=== PATIENT | female | born 1980 | race Caucasian/White ===

== ENCOUNTER → 2016-03-02 | Outpatient (CLI) | payer OTHER ==
[~2016-03-02] MED LIST: MOMLX PO; POLY335019 PO; SERT50TA PO
--- NOTE | 2016-03-03 10:09 | DIAGNOSTIC IMAGING REPORT ---
LEFT KNEE 4 OR MORE CLINICAL HISTORY: LEFT KNEE PAIN REMOTE TRAUMA COMPARISON: None. DISCUSSION: No fractures or dislocations are visualized. There are no areas of periostitis. No radiopaque loose bodies are visualized. IMPRESSION: Unremarkable conventional radiographic evaluation the left knee. Electronically signed by: Tono Mccain M.D. 03/03/2016 10:07 AM
== END | disposition home or self-care (01) ==
LOC: C.RDSM 08:00
PROVIDERS: ATTEND Family Medicine
DX: M25.562 Pain in left knee (principal)

== ENCOUNTER → 2016-04-26 | Outpatient (CLI) | payer OTHER ==
[2016-04-26 17:37] LABS: BASO % 0.3 %; BASO ABS # 0.03 K/uL (0-0.2); COMPLETE YES; EOS % 1.6 %; HEMATOCRIT 38.2 % (37-47); IG% 0.2 %; LYMPH % 22.1 %; LYMPH ABS # 2.36 K/uL (1.2-3.4); MEAN CORPUSCULAR HEMOGLOBIN 26.3 pg (25-34); MEAN CORPUSCULAR HGB CONC 31.7 g/dl (32-36); MEAN PLATELET VOLUME 10.7 fL (7.4-10.4); MONO % 9.1 %; NEUT % 66.7 %; PLATELET COUNT 322 K/uL (130-400); WHITE BLOOD COUNT 10.67 K/uL (4.8-10.8)
[2016-04-26 17:40] LABS: FERRITIN 11.5 ng/ml (8.0-388.0)
== END | disposition home or self-care (01) ==
LOC: C.LABBFT 11:43
PROVIDERS: ATTEND Nurse Practitioner
DX: D50.9 Iron deficiency anemia, unspecified (principal)

== ENCOUNTER 2016-07-22 22:50 | Emergency (ER) | payer OTHER ==
[~2016-07-22] VITALS: Ht 165.1 cm; Wt 67.5 kg
[~2016-07-22 22:50] MED LIST changes: -MOMLX PO; -POLY335019 PO
[2016-07-22 22:56] VITALS: BP 123/65; TEMP 36.8; Ht 165.1 cm; Wt 67.5 kg
[2016-07-22] MEDS ORDERED: KETOROLAC TROMETHAMINE 60 MG/2 ML VIAL IM STA (23:11)
[2016-07-22] MEDS ORDERED: POLY335019 PO (23:52)
--- NOTE | 2016-07-23 00:25 | EMERGENCY ROOM VISIT NOTE ---
History First contact with patient: 23:00 Chief Complaint: WRIST PAIN Stated Complaint: R WRIST PAIN UP TO ELBOW History of Present Illness The patient is a 35 year old female who presents to the Emergency Room with complaints of right forearm pain and discomfort for the past several hours. She 's had DVTs before. Patient does smoke. No injury to the area. She describes the pain as aching, ranging in severity 7 out of 10. Movement makes it worse and nothing makes it better. Patient denies chest pain, dyspnea, fever, chills , numbness, tingling, injury to the area. No Discoloration. No wrist or elbow pain. Review of Systems See HPI for pertinent positives & negatives. A total of 10 systems reviewed and were otherwise negative. Past Medical/Surgical History Medical Problems: (1) Anemia (2) Anxiety (3) Colonoscopy (4) Depression (5) ESOPHAGEAL REFLUX (6) Gallstones (7) Irritable bowel syndrome with constipation (8) Leukocytosis Family History Cancer Diabetes mellitus Gallbladder disease Heart disease Hypertension Kidney disease Kidney stones Lung disease Seizures Social History Smoking Status: Never Smoker Alcohol Use: none Drug Use: none Marital Status: Housing Status: lives with family Occupation Status: employed Current/Historical Medications Scheduled Sertraline (Zoloft), 1 TAB PO DAILY Scheduled PRN Polyethylene Glycol 3350 (Miralax), 17 GM PO DAILY PRN for Constipation Allergies Coded Allergies: Vancomycin (Verified Allergy, Intermediate, REDDENED RASH-"FELT LIKE SKIN WAS ON FIRE"., 07/22/16) Physical Exam Vital Signs Date Time Temp Pulse Resp B/P Pulse Ox O2 Delivery O2 Flow Rate FiO2 07/22/16 22:56 36.8 80 20 123/65 99 Room Air Physical Exam VITALS: Vitals are noted on the nurse's note and reviewed by myself. Vital signs stable. GENERAL: Pleasant female with tobacco odor, in no acute distress, nondiaphoretic , well-developed well-nourished. SKIN: Capillary reflex less than 2 seconds. HEENT: Normocephalic. PERRLA. EOMI. Nares patent. Mucous membranes moist. Neck is supple without nuchal rigidity. HEART: Regular rate and rhythm without murmurs gallops or rubs. LUNGS: Clear to auscultation bilaterally without wheezes, rales or rhonchi. No retractions or accessory muscle use. ABDOMEN: Positive bowel sounds x 4. Normal tympanic percussion. Soft, nontender, without masses or organomegaly. Gongora sign negative. No guarding or rebound tenderness. MUSCULOSKELETAL: No gross musculoskeletal defects. Right forearm diffusely tender to palpation, right shoulder, right elbow, right wrist and right hand nontender to palpation with full range of motion. Radial pulses +2 equal present bilaterally. No signs of synovitis. NEURO: Patient was alert and oriented to person place and time. Normal sensation to light and sharp touch. No focal neurological deficits. Medical Decision & Procedures Medications Administered Medications (Trade) Dose Ordered Sig/Will Route Start Time Stop Time Status Last Admin Dose Admin Ketorolac Tromethamine (Toradol Inj) 60 mg NOW STAT IM 07/22/16 23:11 07/22/16 23:13 DC 07/22/16 23:17 60 MG ED Course Prior records reviewed and summarized above. Triage Nursing notes reviewed. Additional history obtained from the family. The patient's history was concerning for pain in the arm. Differential diagnosis: Etiologies such as DVT, musculoskeletal, infection, joint effusion, trauma, lymphedema, idiopathic, carpal tunnel, neuropathy, fracture, as well as others were entertained.. Physical examination: The physical examination revealed no signs of infection. Neurovascularly intact. ER treatment provided: Toradol On reassessment the patient felt better. Diagnostics interpreted by me: Imaging studies: US VENOUS RIGHT UPPER EXTREMITY: No DVT demonstrated. Radiologist: Zuri Salmeron M.D. X-ray of the forearm with no signs of fracture or dislocation per my interpretation This appears to be consistent with forearm pain with unclear etiology. This could be a neuropathy. She is advised to take Motrin for the pain and follow- up orthopedics in a few days or here in the ER sooner for severe pain, numbness , tingling, worsening signs or symptoms or as needed. patient was neurovascularly neurologic intact. She is well-appearing. By the evaluation outlined above emergent etiologies such as DVT, septic joint, trauma, infection , as well as others were deemed relatively unlikely. The pt informed about the findings as listed above. All questions were answered and pleased with the treatment. Return instructions were outlined and the patient was discharged in stable condition. Referral: The patient was referred back to their primary care physician or orthopedics for follow-up in 2 to 3 days for a recheck of the current condition. Medical Decision As above Impression Primary Impression: Pain in right upper arm Departure Information Dispostion Home / Self-Care Condition GOOD Referrals Nadeen Riley, C.R.N.P. (PCP) Patient Instructions My [facility] Additional Instructions Ibuprofen(Motrin, Advil) may be used for fever or pain. Use 600mg every six hours as needed. Take with food. Avoid using more than 2400mg in a 24 hour period. Do not use 2400mg per day for more than three consecutive days without physician direction. Prolonged inappropriate use can lead to stomach upset or ulcers. This medication can be taken if you need to drive, work, or perform activities which may be dangerous when taking narcotic pain medication. (AND/OR) Acetaminophen(Tylenol) may be used for fever or pain. Use 1000mg every six hours as needed. Avoid using more than 3000mg in a 24 hour period. This medication can be taken if you need to drive, work, or perform activities which may be dangerous when taking narcotic pain medication. Rest and elevate your injury. Continue current medications. Return to the ER immediately for any numbness, tingling, severe pain, extreme swelling in the extremity or as needed. Call Orthopedics in 3-5 days to arrange follow up for your arm pain.
[2016-07-23 00:33] VITALS: PULSE 76; O2SAT 95
--- NOTE | 2016-07-23 07:16 | DIAGNOSTIC IMAGING REPORT ---
RIGHT UPPER EXTREMITY VENOUS DOPPLER HISTORY: Right arm pain. COMPARISON STUDY: None. FINDINGS: The right internal jugular vein is patent. There is normal flow within the right subclavian vein. There is normal flow and compressibility within the right axillary, basilic, brachial, radial, ulnar, and visualized cephalic veins. IMPRESSION: No DVT within the right upper extremity. Electronically signed by: Darvin Villanueva M.D. 07/23/2016 7:14 AM Dictated Date/Time: 07/23/2016 7:14 AM
--- NOTE | 2016-07-23 08:46 | DIAGNOSTIC IMAGING REPORT ---
RIGHT FOREARM 2 VIEWS CLINICAL HISTORY: Right arm pain. FINDINGS: AP and lateral views of the right forearm are obtained. No prior studies are available for comparison at the time of dictation. The skeletal structures are well mineralized. No fracture is seen. The wrist and elbow joints are grossly maintained. The overlying soft tissues are within normal limits. IMPRESSION: Unremarkable radiographic assessment of the right forearm. Electronically signed by: Vimal Murray M.D. 07/23/2016 8:44 AM Dictated Date/Time: 07/23/2016 8:44 AM
== END 2016-07-23 00:34 | disposition home or self-care (01) ==
LOC: C.EDB 22:51 → C.EDC 07-23 00:34
DX: M79.631 Pain in right forearm (principal); F41.9 Anxiety disorder, unspecified; F32.9 Major depressive disorder, single episode, unspecified; K21.9 Gastro-esophageal reflux disease without esophagitis; K58.9 Irritable bowel syndrome, unspecified; Z79.899 Other long term (current) drug therapy; Z86.718 Personal history of other venous thrombosis and embolism; Z87.19 Personal history of other diseases of the digestive system; Z82.0 Family history of epilepsy and other diseases of the nervous system; Z82.49 Family history of ischemic heart disease and other diseases of the circulatory system; Z83.3 Family history of diabetes mellitus; Z83.6 Family history of other diseases of the respiratory system; Z83.79 Family history of other diseases of the digestive system; Z84.1 Family history of disorders of kidney and ureter

== ENCOUNTER 2016-09-20 15:32 | Emergency (ER) | payer OTHER ==
[~2016-09-20] VITALS: Ht 152.4 cm; Wt 69.9 kg
[~2016-09-20 15:32] MED LIST changes: +POLY335019 PO
[2016-09-20 15:46] VITALS: TEMP 37.5; Ht 152.4 cm; Wt 69.9 kg
[2016-09-20 15:52] VITALS: O2SAT 100
[2016-09-20] MEDS ORDERED: SODIUM CHLORIDE 0.9% 1000ML 1,000 ML IV STA (16:21)
[2016-09-20] MEDS ORDERED: MOMLX PO (16:36)
[2016-09-20 16:42] LABS: BASO % 0.2 %; BASO ABS # 0.02 K/uL (0-0.2); COMPLETE YES; EOS % 0.6 %; HEMATOCRIT 36.1 % (37-47); IG% 0.3 %; LYMPH % 15.7 %; LYMPH ABS # 1.88 K/uL (1.2-3.4); MEAN CELL VOLUME 83.6 fL (80-100); MEAN CORPUSCULAR HEMOGLOBIN 27.3 pg (25-34); MEAN CORPUSCULAR HGB CONC 32.7 g/dl (32-36); MEAN PLATELET VOLUME 10.2 fL (7.4-10.4); MONO % 8.4 %; NEUT % 74.8 %; PLATELET COUNT 359 K/uL (130-400); RED BLOOD COUNT 4.32 M/uL (4.2-5.4); WHITE BLOOD COUNT 11.96 K/uL (4.8-10.8)
--- NOTE | 2016-09-20 16:42 | DIAGNOSTIC IMAGING REPORT ---
SINGLE VIEW CHEST CLINICAL HISTORY: Tachycardia. FINDINGS: An AP, portable, upright chest radiograph is compared to study dated 12/18/2015. The cardiomediastinal silhouette is unremarkable. The lungs and pleural spaces are clear. No pneumothorax is seen. The bony thorax is grossly intact. IMPRESSION: No active disease in the chest. Electronically signed by: Vimal Murray M.D. 09/20/2016 4:40 PM Dictated Date/Time: 09/20/2016 4:40 PM
[2016-09-20 16:48] LABS: PREG INTERNAL NEGATIVE QC NEG CLEAR BACKGROUND; PREG INTERNAL POSITIVE QC POS CONTROL LINE
[2016-09-20 16:50] LABS: BLOOD UREA NITROGEN 9 mg/dl (7-18); BUN/CREATININE RATIO 7.8 (10-20); CALCIUM 8.3 mg/dl (8.5-10.1); CARBON DIOXIDE 28 mmol/L (21-32); CHLORIDE 105 mmol/L (98-107); GLUCOSE 99 mg/dl (70-99); MAGNESIUM 2.5 mg/dl (1.8-2.4); POTASSIUM 3.8 mmol/L (3.5-5.1); SODIUM 141 mmol/L (136-145)
[2016-09-20] MEDS ORDERED: OPTIRAY 320 IV PRN (17:30)
--- NOTE | 2016-09-20 18:12 | DIAGNOSTIC IMAGING REPORT ---
CT ANGIOGRAPHY OF THE CHEST, PULMONARY EMBOLUS PROTOCOL CLINICAL HISTORY: Elevated d-dimer, tachycardia and near syncope. COMPARISON STUDY: Chest radiograph December 26, 2015 and September 20, 2016. TECHNIQUE: Following IV administration of 73 mL of Optiray-320, helical axial images of the chest were obtained utilizing the pulmonary embolus protocol. Maximal intensity projections and sagittal and coronal reformats were viewed on an independent 3D workstation. IV contrast was administered without complication. A dose lowering technique was utilized adhering to the principles of ALARA. CT DOSE: 246.19 mGy.cm FINDINGS: No pulmonary emboli are identified. There is no evidence of thoracic aortic dissection. The size of the heart is normal. There is no pericardial effusion. Central airways are patent. No enlarged axillary, mediastinal or hilar lymph nodes are present. Lungs are clear. There is no pneumothorax or pleural effusion. The bony thorax and upper abdomen are unremarkable. IMPRESSION: 1. No pulmonary emboli identified. 2. No acute intrathoracic findings. Electronically signed by: Pete Reardon M.D. 09/20/2016 6:11 PM Dictated Date/Time: 09/20/2016 6:06 PM
--- NOTE | 2016-09-20 18:29 | EMERGENCY ROOM VISIT NOTE ---
History First contact with patient: 15:59 Chief Complaint: TACHYCARDIA Stated Complaint: TACHYCARDIA, NEAR SYNCOPE Nursing Triage Summary: Patient states she was outside unloading stuff from truck and started feeling lightheaded and dizzy. Patient states she then became nervous and and felt like her heart was racing. Patient states she has a hx of panic attacks for which she takes Zoloft for. No CP or SOB was experienced during this episode. History of Present Illness The patient is a 35 year old female who presents to the Emergency Room with complaints of dizziness and an episode of almost passing out. The patient states that she was outside unloading things from a truck when she began to feel lightheaded and dizzy. She states that she felt like she was going to pass out and felt her heart racing. She sat down and states that her hands became numb and tingling. She states that her symptoms have gradually improved and she feels much better at this time. She does have a history of anxiety and panic attacks. She does not take any medications as needed for the symptoms. She does admit to working outside in the hot weather and feels she may have been a little dehydrated. She denies any loss of consciousness. She denies chest pain, shortness of breath, headache, neck pain or recent illnesses. Review of Systems A complete 10 point review of systems was reviewed with the patient with pertinent positives and negatives as per history of present illness. All else were negative. Past Medical/Surgical History Medical Problems: (1) Anemia (2) Anxiety (3) Colonoscopy (4) Depression (5) ESOPHAGEAL REFLUX (6) Gallstones (7) Irritable bowel syndrome with constipation (8) Leukocytosis Family History Cancer Diabetes mellitus Gallbladder disease Heart disease Hypertension Kidney disease Kidney stones Lung disease Seizures Social History Smoking Status: Never Smoker Alcohol Use: none Drug Use: none Marital Status: Housing Status: lives with family Occupation Status: employed Current/Historical Medications Scheduled Magnesium Hydroxide (Milk of Magnesia), 30 ML PO WK Sertraline (Zoloft), 50 MG PO DAILY Physical Exam Vital Signs Date Time Temp Pulse Resp B/P (MAP) Pulse Ox O2 Delivery O2 Flow Rate FiO2 09/20/16 18:34 73 16 95/53 99 Room Air 09/20/16 17:45 84 18 97/56 99 Room Air 09/20/16 16:14 103 09/20/16 15:52 100 Room Air 09/20/16 15:46 37.5 125 33 136/66 100 Room Air 09/20/16 15:46 98 Room Air Physical Exam VITALS: Vitals are noted on the nurse's note and reviewed by myself. Vital signs stable. GENERAL: This is a 35-year-old female, in no acute distress, nondiaphoretic, well-developed well-nourished. SKIN: The skin was without rashes. EARS: External auditory canals clear, tympanic membranes pearly morrison without erythema or effusion bilaterally. EYES: Pupils equal round and reactive to light and accommodation. Conjunctivae without injection, sclerae without icterus. Extraocular movements intact. MOUTH: Mucous membranes moist. Tonsils are not enlarged. Pharynx without erythema or exudate. NECK: Supple without nuchal rigidity. No lymphadenopathy. HEART: Regular rate and rhythm without murmurs gallops or rubs. LUNGS: Clear to auscultation bilaterally without wheezes, rales or rhonchi. MUSCULOSKELETAL: Full range of motion throughout. Strength 5/5 throughout. NEURO: Patient was alert and oriented to person place and time. Normal sensation to light and sharp touch. Medical Decision & Procedures ER Provider Diagnostic Interpretation: SINGLE VIEW CHEST FINDINGS: An AP, portable, upright chest radiograph is compared to study dated 12/18/2015. The cardiomediastinal silhouette is unremarkable. The lungs and pleural spaces are clear. No pneumothorax is seen. The bony thorax is grossly intact. IMPRESSION: No active disease in the chest. CT ANGIOGRAPHY OF THE CHEST, PULMONARY EMBOLUS PROTOCOL FINDINGS: No pulmonary emboli are identified. There is no evidence of thoracic aortic dissection. The size of the heart is normal. There is no pericardial effusion. Central airways are patent. No enlarged axillary, mediastinal or hilar lymph nodes are present. Lungs are clear. There is no pneumothorax or pleural effusion. The bony thorax and upper abdomen are unremarkable. IMPRESSION: 1. No pulmonary emboli identified. 2. No acute intrathoracic findings. Laboratory Results 09/20/16 16:00 Red Blood Count 4.32, Mean Corpuscular Volume 83.6, Mean Corpuscular Hemoglobin 27.3, Mean Corpuscular Hemoglobin Concent 32.7, Mean Platelet Volume 10.2, Neutrophils (%) (Auto) 74.8, Lymphocytes (%) (Auto) 15.7, Monocytes (%) (Auto) 8.4, Eosinophils (%) (Auto) 0.6, Basophils (%) (Auto) 0.2, Neutrophils # (Auto) 8.96, Lymphocytes # (Auto) 1.88, Monocytes # (Auto) 1.00, Eosinophils # (Auto) 0.07, Basophils # (Auto) 0.02 09/20/16 16:00 Test 09/20/16 16:00 White Blood Count 11.96 K/uL (4.8-10.8) Red Blood Count 4.32 M/uL (4.2-5.4) Hemoglobin 11.8 g/dL (12.0-16.0) Hematocrit 36.1 % (37-47) Mean Corpuscular Volume 83.6 fL (80-100) Mean Corpuscular Hemoglobin 27.3 pg (25-34) Mean Corpuscular Hemoglobin Concent 32.7 g/dl (32-36) Platelet Count 359 K/uL (130-400) Mean Platelet Volume 10.2 fL (7.4-10.4) Neutrophils (%) (Auto) 74.8 % Lymphocytes (%) (Auto) 15.7 % Monocytes (%) (Auto) 8.4 % Eosinophils (%) (Auto) 0.6 % Basophils (%) (Auto) 0.2 % Neutrophils # (Auto) 8.96 K/uL (1.4-6.5) Lymphocytes # (Auto) 1.88 K/uL (1.2-3.4) Monocytes # (Auto) 1.00 K/uL (0.11-0.59) Eosinophils # (Auto) 0.07 K/uL (0-0.5) Basophils # (Auto) 0.02 K/uL (0-0.2) RDW Standard Deviation 42.5 fL (36.4-46.3) RDW Coefficient of Variation 13.8 % (11.5-14.5) Immature Granulocyte % (Auto) 0.3 % Immature Granulocyte # (Auto) 0.03 K/uL (0.00-0.02) D-Dimer 620 ug/L FEU (0-500) Anion Gap 8.0 mmol/L (3-11) Est Creatinine Clear Calc Drug Dose 57.6 ml/min Estimated GFR () 68.3 Estimated GFR (Non- 58.9 BUN/Creatinine Ratio 7.8 (10-20) Calcium Level 8.3 mg/dl (8.5-10.1) Magnesium Level 2.5 mg/dl (1.8-2.4) Troponin I < 0.015 ng/ml (0-0.045) Thyroid Stimulating Hormone (TSH) 1.520 uIu/ml (0.300-4.500) Human Chorionic Gonadotropin, Qual NEG (NEG) Medications Administered Medications (Trade) Dose Ordered Sig/Will Route Start Time Stop Time Status Last Admin Dose Admin Sodium Chloride 1,000 ml @ 999 mls/hr Q1H1M STAT IV 09/20/16 16:21 09/20/16 17:21 DC 09/20/16 16:21 999 MLS/HR ECG Rate (beats per minute): 108 Rhythm: sinus tachycardia Findings: no acute ischemic change, no ectopy Comparison ECG Date: increased ventricular rate ED Course The patient was evaluated as above. Labs were drawn and IV access was obtained. Patient was medicated with 1 L normal saline solution. Patient was reevaluated and findings were discussed. The patient felt much better after IV hydration. Discharge instructions were reviewed with the patient. The patient verbalized understanding of my assessment and treatment plan and was discharged home in good condition. Medical Decision Differential diagnosis includes arrhythmia, dehydration, pulmonary embolism, electrolyte abnormality, ACS, among others. The patient is a 35-year-old female who presents today complaining of an episode of near-syncope. Labs revealed a mild leukocytosis, possibly secondary to stress. Minimal elevation of magnesium. No concerning anemia or other electrolyte abnormalities. D-dimer was elevated and for this reason a CT of the chest was performed. This showed no evidence of pulmonary embolism. EKG showed a sinus tachycardia. The patient's heart rate improved significantly after IV hydration. She was likely slightly dehydrated due to working outside in the heat. There may have also been an element of anxiety related to her symptoms today. She was instructed to follow-up closely with her primary care provider regarding today's symptoms. Based on the patient's presentation and work up, I feel the patient is stable for outpatient treatment. The patient was educated to return to the emergency department for any worsening of their current condition or new/concerning symptoms. She will follow up with her PCP. Medication Reconcilliation Current Medication List: was personally reviewed by me Blood Pressure Screening Patient's blood pressure: Low blood pressure (reviewed previous records, patient has had similar blood pressures on multiple previous visits.) Impression Primary Impression: Near syncope Departure Information Dispostion Home / Self-Care Condition GOOD Referrals Nadeen Riley C.R.N.P. (PCP) Patient Instructions My [facility] Additional Instructions Rest and drink plenty of fluids. Follow-up with your primary care provider for further evaluation. Return here for any worsening or new/concerning symptoms.
[2016-09-20 18:34] VITALS: BP 95/53; PULSE 73; O2SAT 99
== END 2016-09-20 18:40 | disposition home or self-care (01) ==
LOC: EDBD 15:32 → C.EDC 15:33
DX: R55 Syncope and collapse (principal); R00.0 Tachycardia, unspecified; R20.0 Anesthesia of skin; F41.9 Anxiety disorder, unspecified; K21.9 Gastro-esophageal reflux disease without esophagitis; Z79.899 Other long term (current) drug therapy; Z87.19 Personal history of other diseases of the digestive system; Z82.0 Family history of epilepsy and other diseases of the nervous system; Z82.49 Family history of ischemic heart disease and other diseases of the circulatory system; Z83.3 Family history of diabetes mellitus; Z83.6 Family history of other diseases of the respiratory system; Z83.79 Family history of other diseases of the digestive system; Z84.1 Family history of disorders of kidney and ureter

== ENCOUNTER → 2016-09-23 | Outpatient (CLI) | payer OTHER ==
[~2016-09-23] MED LIST changes: +MOMLX PO; -POLY335019 PO
[2016-09-23 11:49] LABS: BASO % 0.2 %; BASO ABS # 0.02 K/uL (0-0.2); COMPLETE YES; EOS % 2.1 %; HEMATOCRIT 33.5 % (37-47); IG% 0.3 %; MEAN CELL VOLUME 84.4 fL (80-100); MEAN CORPUSCULAR HGB CONC 31.9 g/dl (32-36); MONO % 9.4 %; PLATELET COUNT 342 K/uL (130-400); RED BLOOD COUNT 3.97 M/uL (4.2-5.4); WHITE BLOOD COUNT 11.09 K/uL (4.8-10.8)
== END | disposition home or self-care (01) ==
LOC: C.LABBFT 07:38
PROVIDERS: ATTEND Physician Assistant Medical
DX: K59.00 Constipation, unspecified (principal)

== ENCOUNTER 2016-10-02 18:50 | Emergency (ER) | payer OTHER ==
[~2016-10-02] VITALS: Ht 165.1 cm; Wt 66.6 kg
[2016-10-02 18:55] VITALS: TEMP 36.7; Ht 165.1 cm; Wt 66.6 kg
--- NOTE | 2016-10-02 19:16 | EMERGENCY ROOM VISIT NOTE ---
History Report prepared by [employer]: Muriel Orozco Under the Supervision of: Dr. Luis Manuel Sheets M.D. First contact with patient: 18:58 Chief Complaint: CONSTIPATION Stated Complaint: STOMACH PRESSURE History of Present Illness The patient is a 35 year old female who presents to the Emergency Room with complaints of persistent constipation for the past 12 days. She has a history of IBS with constipation and states she is on a new medication and her body takes "a while to get used to it". She has not had a bowel movement for 12 days. She notes she has not felt the urge to move her bowels but states this is chronic for her. She is still passing gas and belching. She is still able to eat. In the past, enema's have provided relief, but she has not used one in approximately 1 year. The patient denies any recent fevers, chills, cough or cold symptoms, nausea, vomiting or urinary symptoms. She has never undergone any abdominal surgeries. Her last menstrual period ended yesterday and was normal. Source of History: patient Onset: 12 days MED AIDE Position: abdomen Timing: other (persistent) Associated Symptoms: No fevers, No chills, No cough (cough or cold symptoms) , No nausea, No vomiting, No urinary symptoms Review of Systems See HPI for pertinent positives and negatives. A total of ten systems were reviewed and were otherwise negative. Past Medical & Surgical Medical Problems: (1) Anemia (2) Anxiety (3) Colonoscopy (4) Depression (5) ESOPHAGEAL REFLUX (6) Gallstones (7) Irritable bowel syndrome with constipation (8) Leukocytosis Family History Cancer Diabetes mellitus Gallbladder disease Heart disease Hypertension Kidney disease Kidney stones Lung disease Seizures Social History Smoking Status: Never Smoker Alcohol Use: none Drug Use: none Marital Status: Housing Status: lives with family Occupation Status: employed Current/Historical Medications Scheduled Magnesium Hydroxide (Milk of Magnesia), 30 ML PO WK Sertraline (Zoloft), 50 MG PO DAILY Allergies Coded Allergies: Vancomycin (Verified Allergy, Intermediate, REDDENED RASH-"FELT LIKE SKIN WAS ON FIRE"., 10/02/16) Physical Exam Vital Signs Date Time Temp Pulse Resp B/P (MAP) Pulse Ox O2 Delivery O2 Flow Rate FiO2 10/02/16 22:37 76 18 120/69 94 10/02/16 20:45 83 16 124/66 100 Room Air 10/02/16 18:55 36.7 84 18 127/72 99 Room Air Physical Exam GENERAL: Awake, alert, well-appearing, in no acute distress HENT: Normocephalic, atraumatic. Oropharynx unremarkable. EYES: Normal conjunctiva. Sclera non-icteric. NECK: Supple. No nuchal rigidity. FROM. No JVD. RESPIRATORY: Clear to auscultation. CARDIAC: Regular rate, normal rhythm. Extremities warm and well perfused. Pulses equal. ABDOMEN: Soft, non-distended with some fullness. Mild general discomfort, but otherwise the abdomen is nontender to palpation. No rebound or guarding. No masses. RECTAL: Deferred. MUSCULOSKELETAL: Chest examination reveals no tenderness. The back is symmetrical on inspection without obvious abnormality. There is no CVA tenderness to palpation. No joint edema. LOWER EXTREMITIES: Calves are equal size bilaterally and non-tender. No edema. No discoloration. NEURO: Normal sensorium. No sensory or motor deficits noted. SKIN: No rash or jaundice noted. Medical Decision & Procedures ER Provider Diagnostic Interpretation: Radiology results as stated below per my review and radiologist interpretation: KUB CLINICAL HISTORY: constipation COMPARISON STUDY: December 31, 2015 FINDINGS: There is no pathologic bowel dilatation. There is mild fecal retention. Stool within the rectum measures 10 cm in diameter. IMPRESSION: 1. Fecal retention. Stool within the rectum measures 10 cm in diameter. Electronically signed by: Tono Mccain M.D. 10/02/2016 8:20 PM Medications Administered Medications (Trade) Dose Ordered Sig/Will Route Start Time Stop Time Status Last Admin Dose Admin Miscellaneous Medication (Milk And Molasses Enema) 1 ea NOW STAT [place] 10/02/16 20:31 10/02/16 20:35 DC 10/02/16 21:15 1 ED Course 1907: The patient was evaluated in room C12. A complete history and physical exam was performed. 2028: I reevaluated the patient. Nursing is getting an enema prepared and we will see if that offers any improvement. 2030: Milk and Molasses Enema 1 [place]. Medical Decision I reviewed the patient's past medical history, medications, and the nursing notes as described above. The differential diagnoses considered include constipation, IBS, obstruction, biliary etiology and colitis. Patient is a 35-year-old woman with a past medical history of chronic constipation, as well as IBS presents to emergency department with persistent constipation over the past 12 days per history of present illness. Patient denies any worsening pain or come to the ED today because she says she was told that it should not continue more than 12 days without evaluation. Denies any nausea or vomiting or changes in ability to take by mouth. She reports taking bowel regimen regularly and recently was changed to a different regimen. Denies fevers chills chest pain shortness of breath or urinary symptoms. On exam the patient is in no acute distress, afebrile and has stable vital signs. Her abdomen has some mild fullness but is not distended. Reports mild discomfort with palpation but no significant tenderness. Considering the patient is well appearing with benign abdominal exam and the setting of chronic constipation do not feel that labs are required at this time. Moreover KUB demonstrates unremarkable bowel caliber however was significant stool burden including a 10 cm stool ball in the rectum. Findings discussed with patient in the patient is agreeable for an enema with the possibility of manual disimpaction if needed. Patient with successful large bowel movement after enema. Patient will follow up with her doctor in her GI specialist as she already has planned. Medication Reconcilliation Current Medication List: was personally reviewed by me Blood Pressure Screening Patient's blood pressure: Normal blood pressure Blood pressure disposition: Did not require urgent referral Impression Primary Impression: Constipation Scribe Attestation The scribe's documentation has been prepared under my direction and personally reviewed by me in its entirety. I confirm that the note above accurately reflects all work, treatment, procedures, and medical decision making performed by me. Departure Information Dispostion Home / Self-Care Referrals Nadeen Riley, C.R.N.P. (PCP) Patient Instructions Constipation, My [facility] Additional Instructions Please follow up with your primary care physician in the next 1-3 days. Your x-ray showed your significantly constipated. Otherwise, your exam did not show signs of an emergent condition. Your symptoms were improved with a successful enema. Continue your current medications and follow up with your primary care doctor and your GI specialist as planned. Drink plenty of fluids to stay hydrated as dehydration can precipitates constipation. Return to the emergency department for worsening symptoms as described in the accompanying instructions.
--- NOTE | 2016-10-02 20:21 | DIAGNOSTIC IMAGING REPORT ---
XU CLINICAL HISTORY: constipation COMPARISON STUDY: December 31, 2015 FINDINGS: There is no pathologic bowel dilatation. There is mild fecal retention. Stool within the rectum measures 10 cm in diameter. IMPRESSION: 1. Fecal retention. Stool within the rectum measures 10 cm in diameter. Electronically signed by: Tono Mccain M.D. 10/02/2016 8:20 PM Dictated Date/Time: 10/02/2016 8:19 PM
[2016-10-02] MEDS ORDERED: MILK AND MOLASSES ENEMA PR STA (20:31)
[2016-10-02 22:37] VITALS: BP 120/69; PULSE 76; O2SAT 94
== END 2016-10-02 22:39 | disposition home or self-care (01) ==
LOC: C.EDB 18:51 → C.EDC 22:39
DX: K59.00 Constipation, unspecified (principal); K58.1 Irritable bowel syndrome with constipation; D64.9 Anemia, unspecified; F41.9 Anxiety disorder, unspecified; F32.9 Major depressive disorder, single episode, unspecified; K21.9 Gastro-esophageal reflux disease without esophagitis; Z83.3 Family history of diabetes mellitus; Z82.49 Family history of ischemic heart disease and other diseases of the circulatory system; Z84.1 Family history of disorders of kidney and ureter; Z82.0 Family history of epilepsy and other diseases of the nervous system

== ENCOUNTER 2016-10-16 01:30 | Emergency (ER) | payer OTHER ==
[~2016-10-16] VITALS: Ht 165.1 cm; Wt 65.5 kg
[2016-10-16 01:33] VITALS: TEMP 36.6; Ht 165.1 cm; Wt 65.5 kg
[2016-10-16] MEDS ORDERED: SOAP SUDS ENEMA PR ONE (02:30)
[2016-10-16] MEDS ORDERED: MAGNESIUM CITRATE 296 ML/BTL PO ONE (04:15)
[2016-10-16 04:16] VITALS: BP 95/55; PULSE 70; O2SAT 97
--- NOTE | 2016-10-16 06:01 | EMERGENCY ROOM VISIT NOTE ---
History First contact with patient: 02:05 Chief Complaint: ABDOMINAL PAIN Stated Complaint: STOMACH Nursing Triage Summary: No bowel movement for past two weeks. Here on 10/03 and given enema with relief in ED but nothing again since then. Pt denies pain but reports pressure in lower abdomen. Denies nausea/vomiting or other problems. History of Present Illness The patient is a 35 year old female who presents to the Emergency Room with complaints of left-sided abdominal pain and cramping worsening over the past 2 days. The patient states that she was seen here 12 days ago with identical complaints. At that time she was diagnosed with constipation and was given an enema. She had significant improvement of symptoms after the enema, but states that she has not had a bowel movement in the past 12 days. The patient has not had nausea, vomiting, fever, or chest pain. The patient rates her discomfort a 5/10. She has been eating and drinking as normal. Review of Systems More than 10 systems were reviewed and otherwise negative with the exception of history of present illness. Past Medical/Surgical History Medical Problems: (1) Anemia (2) Anxiety (3) Colonoscopy (4) Depression (5) ESOPHAGEAL REFLUX (6) Gallstones (7) Irritable bowel syndrome with constipation (8) Leukocytosis Family History Cancer Diabetes mellitus Gallbladder disease Heart disease Hypertension Kidney disease Kidney stones Lung disease Seizures Social History Smoking Status: Never Smoker Alcohol Use: none Drug Use: none Marital Status: Housing Status: lives with family Occupation Status: employed Current/Historical Medications Scheduled Magnesium Hydroxide (Milk of Magnesia), 30 ML PO WK Sertraline (Zoloft), 50 MG PO DAILY Allergies Coded Allergies: Vancomycin (Verified Allergy, Intermediate, REDDENED RASH-"FELT LIKE SKIN WAS ON FIRE"., 10/02/16) Physical Exam Vital Signs Date Time Temp Pulse Resp B/P (MAP) Pulse Ox O2 Delivery O2 Flow Rate FiO2 10/16/16 04:16 70 18 95/55 97 10/16/16 03:30 65 103/68 94 Room Air 10/16/16 03:25 113/66 10/16/16 02:30 113/63 10/16/16 02:15 80 100 10/16/16 02:00 107/78 10/16/16 01:55 87 18 100 10/16/16 01:51 121/87 10/16/16 01:33 36.6 79 18 121/84 100 Room Air Pain Rating (0-10): 2.0 Physical Exam VITALS: Vitals are noted on the nurse's note and reviewed by myself. Vital signs stable. GENERAL: Well-developed, well-nourished, white female, who is in no acute distress and resting comfortably. Patient is cooperative with the examination. HEART: Regular rate and rhythm without murmurs gallops or rubs. LUNGS: Clear to auscultation bilaterally without wheezes, rales or rhonchi. No retractions or accessory muscle use. ABDOMEN: Positive normal bowel sounds x 4. Soft, with some generalized left- sided mild tenderness. MUSCULOSKELETAL: No muscle atrophy, erythema, or edema noted. Full range of motion without joint tenderness in all extremities. Medical Decision & Procedures Medications Administered Medications (Trade) Dose Ordered Sig/Will Route Start Time Stop Time Status Last Admin Dose Admin Miscellaneous (Soap Suds Enema) 1 ea NOW ONCE [place] 10/16/16 02:30 10/16/16 02:31 DC 10/16/16 02:48 1 EA Magnesium Citrate (Citrate Of Magnesia Soln) 296 ml NOW ONCE PO 10/16/16 04:15 10/16/16 04:16 DC 10/16/16 04:16 296 ML ED Course Physical exam and history were performed. Nursing notes, EMR, and Medication List were personally reviewed. Patient appears to have constipation symptoms for the past 12 days. She is developing some left-sided abdominal pain. The patient does not appear toxic on examination and does not have a fever. Clinically it is suspected constipation is her likely etiology of the abdominal discomfort. I discussed options of care with the patient, and she did prefer a soapsuds enema. Soapsuds enema was performed by nursing with significant results. On reevaluation the patient's abdomen was soft and nontender. The patient reported that she felt much better as well. I will provide the patient a course of Magnesium Citrate to use at home. She may also consider an over-the- counter stool softener such as Colace on a daily basis. The patient really is to follow with her primary care physician for further care and management. She may need colonoscopy or other GI evaluation if this continues the patient was otherwise invited the ER with any new, worsening, or concerning symptoms. The chart was completed utilizing [employer] Speech Voice Recognition Software. Grammatical errors, random word insertions, pronoun errors, and incomplete sentences are an occasional consequence of this system due to software limitations, ambient noise, and hardware issues. Any formal questions or concerns about the content, text, or information contained within the body of this dictation should be directly addressed to the provider for clarification. . Medical Decision Differential diagnosis: Etiologies such as constipation, appendicitis, diverticulitis, PUD, biliary pathology, UTI, pancreatitis, obstruction, mesenteric ischemia, aortic pathology , infections, inflammatory bowel disease, renal colic, as well as others were entertained. Impression Primary Impression: Constipation Departure Information Dispostion Home / Self-Care Condition GOOD Forms Call Back Authorization, HOME CARE DOCUMENTATION FORM, IMPORTANT VISIT INFORMATION Patient Instructions My [facility] Additional Instructions You were seen and evaluated today on an emergency basis only. This is not a substitute for, or an effort to provide, complete comprehensive medical care. It is not possible to recognize and treat all injuries or illnesses in a single emergency department visit. For this reason it is recommended that you followup with your primary care physician next week for ongoing care and evaluation. Take the magnesium citrate at home. Drink the bottle, wait one hour, then drink the other half. We recommended you take this at home as it will elicit a bowel movement. Drink plenty of water while taking this medication. You are welcome to return to the emergency department anytime with new, worsening, or concerning symptoms.
== END 2016-10-16 04:18 | disposition home or self-care (01) ==
LOC: C.EDB 01:31 → C.EDA 04:18
DX: K59.00 Constipation, unspecified (principal); D64.9 Anemia, unspecified; F41.9 Anxiety disorder, unspecified; F32.9 Major depressive disorder, single episode, unspecified; K21.9 Gastro-esophageal reflux disease without esophagitis; K58.9 Irritable bowel syndrome, unspecified; Z80.9 Family history of malignant neoplasm, unspecified; Z83.3 Family history of diabetes mellitus; Z82.49 Family history of ischemic heart disease and other diseases of the circulatory system; Z84.1 Family history of disorders of kidney and ureter; Z83.6 Family history of other diseases of the respiratory system; Z79.899 Other long term (current) drug therapy

== ENCOUNTER → 2016-11-09 | Outpatient (CLI) | payer OTHER ==
--- NOTE | 2016-11-09 18:55 | DIAGNOSTIC IMAGING REPORT ---
KUB HISTORY: K59.00 Constipation COMPARISON: KUB 10/02/2016. FINDINGS: The bowel gas pattern is unremarkable. There are no dilated loops of small bowel to suggest an obstruction. No renal calculi. No ureteral calculi. No pneumoperitoneum or pneumatosis. Small to moderate amount of well-formed stool seen within the colon. This is improved. The stool ball within the rectum seen on the prior study has passed in the interval. IMPRESSION: Improvement in the small to moderate amount of well-formed stool seen within the colon. Electronically signed by: Darvin Villanueva M.D. 11/09/2016 6:54 PM Dictated Date/Time: 11/09/2016 6:52 PM
== END | disposition home or self-care (01) ==
LOC: C.RAD 16:48
PROVIDERS: ATTEND Physician Assistant Medical
DX: K59.00 Constipation, unspecified (principal)

== ENCOUNTER → 2017-04-15 | Outpatient (CLI) | payer OTHER | END | disposition home or self-care (01) | LOC: C.LABBFT 14:53 | PROVIDERS: ATTEND Physician Assistant Medical | DX: R31.0 Gross hematuria (principal) ==

== ENCOUNTER → 2017-05-05 | Outpatient (CLI) | payer OTHER | END | disposition home or self-care (01) | LOC: C.LABBFT 13:11 | PROVIDERS: ATTEND Physician Assistant Medical | DX: R39.9 Unspecified symptoms and signs involving the genitourinary system (principal) ==

== ENCOUNTER → 2017-05-30 | Outpatient (CLI) | payer OTHER ==
[2017-05-30 15:19] LABS: BASO % 0.2 %; BASO ABS # 0.03 K/uL (0-0.2); EOS % 0.6 %; EOS ABS # 0.08 K/uL (0-0.5); HEMATOCRIT 36.2 % (37-47); HEMOGLOBIN 12.1 g/dL (12.0-16.0); IG# 0.04 K/uL (0.00-0.02); LYMPH % 17.1 %; LYMPH ABS # 2.35 K/uL (1.2-3.4); MEAN CELL VOLUME 84.4 fL (80-100); MEAN CORPUSCULAR HEMOGLOBIN 28.2 pg (25-34); MEAN CORPUSCULAR HGB CONC 33.4 g/dl (32-36); MEAN PLATELET VOLUME 9.7 fL (7.4-10.4); MONO % 8.3 %; MONO ABS # 1.14 K/uL (0.11-0.59); NEUT % 73.5 %; NEUT ABS # 10.07 K/uL (1.4-6.5); PLATELET COUNT 362 K/uL (130-400); RED CELL DISTRIBUTION WIDTH CV 13.2 % (11.5-14.5); RED CELL DISTRIBUTION WIDTH SD 39.8 fL (36.4-46.3); WHITE BLOOD COUNT 13.71 K/uL (4.8-10.8)
== END | disposition home or self-care (01) ==
LOC: C.LAB1850 14:48
PROVIDERS: ATTEND Physician Assistant
DX: R39.9 Unspecified symptoms and signs involving the genitourinary system (principal); N92.6 Irregular menstruation, unspecified

== ENCOUNTER 2017-05-31 07:28 | Emergency (ER) | payer OTHER ==
[~2017-05-31] VITALS: Ht 175.3 cm; Wt 65.0 kg
[2017-05-31 07:30] VITALS: TEMP 37.3; Ht 175.3 cm; Wt 65.0 kg
--- NOTE | 2017-05-31 08:35 | EMERGENCY ROOM VISIT NOTE ---
History First contact with patient: 07:32 Chief Complaint: SORETHROAT Stated Complaint: SORE THROAT PAINS History of Present Illness The patient is a 36 year old female who presents to the Emergency Room with complaints of sore throat upon awakening around 3 AM this morning. The patient reports that she did have some mild discomfort last evening as well. The patient denies any other recent symptoms such as runny nose, congestion or cough. She denies history of recurrent strep throat, and denies history of tonsillectomy. The patient also denies any history of reflux or indigestion. The patient did take some Tylenol this morning for her discomfort, and rates her pain a 2 out of 10. Review of Systems 10 system review was performed and was negative except for pertinent positives and negatives as indicated in history of present illness Past Medical/Surgical History Medical Problems: (1) Anemia (2) Anxiety (3) Colonoscopy (4) Depression (5) ESOPHAGEAL REFLUX (6) Gallstones (7) Irritable bowel syndrome with constipation (8) Leukocytosis Family History Cancer Diabetes mellitus Gallbladder disease Heart disease Hypertension Kidney disease Kidney stones Lung disease Seizures Social History Smoking Status: Never Smoker Alcohol Use: none Drug Use: none Marital Status: Housing Status: lives with family Occupation Status: employed Current/Historical Medications Scheduled Sertraline (Zoloft), 50 MG PO DAILY Physical Exam Vital Signs Date Time Temp Pulse Resp B/P (MAP) Pulse Ox O2 Delivery O2 Flow Rate FiO2 18 07:30 37.3 79 16 112/49 98 Physical Exam CONSTITUTIONAL: Healthy and well nourished. Alert and oriented X 3 with positive affect. Patient does not appear in any acute distress. HEENT: Normocephalic, atraumatic. Pupils equal, round and reactive. No facial edema, conjunctival injection, rhinorrhea or TM bulging noted. OROPHARYNX: The patient has generalized posterior pharyngeal erythema without tonsillar hypertrophy or exudates. LYMPHATICS: No posterior or anterior cervical chain adenopathy. NECK: Full active range of motion without discomfort. No nuchal rigidity. RESPIRATORY: Clear to auscultation bilaterally with no wheezing, crackles, rhonchi or stridor. CARDIOVASCULAR: Regular rate and rhythm with no murmurs, rubs or gallops. INTEGUMENTARY: No rash or other significant dermatologic conditions noted. NEUROLOGIC: No focal neurologic deficits noted. Medical Decision & Procedures Laboratory Results Rapid strep was performed and was negative. Strep cultures are pending. ED Course Patient history and physical exam were performed. Nurse's notes were reviewed. Vital signs were reviewed and were normal. The patient is afebrile. The patient refused any analgesics. Rapid strep was performed and was negative. The patient was advised that she likely has a viral upper respiratory infection. We will contact her with any positive strep cultures. She was encouraged alternate ibuprofen and Tylenol as needed for pain. The patient was advised that this could also be reflux, and if she has any recurrent symptoms, she should follow-up with her PCP to discuss further management. She may also try taking Zantac 150 mg as needed when she has this discomfort. The patient was happy with plan of care, voiced understanding of all discharge instructions , and rated her discomfort a 2 out of 10 at the time of discharge. Prior to patient discharge, I did notice in the EMR medical records that the patient had lab work performed yesterday. I further reviewed PCP office notes where she was seen yesterday by Cristal Koehler PA-C. It was thought that she had a viral upper respiratory infection, including viral conjunctivitis. Medical Decision Medication Reconcilliation Current Medication List: was personally reviewed by me Blood Pressure Screening Patient's blood pressure: Normal blood pressure Impression Primary Impression: Acute pharyngitis Departure Information Referrals Nadeen Riley, C.R.N.P. (PCP) Patient Instructions My [facility] Problem Qualifiers Primary Impression: Acute pharyngitis Pharyngitis/tonsillitis etiology: unspecified etiology Qualified Codes: J02.9 - Acute pharyngitis, unspecified
[2017-05-31 08:40] VITALS: BP 113/65; PULSE 75; O2SAT 100
== END 2017-05-31 08:40 | disposition home or self-care (01) ==
LOC: C.EDB 07:30 → C.EDA 08:40
DX: J02.9 Acute pharyngitis, unspecified (principal); D64.9 Anemia, unspecified; F41.9 Anxiety disorder, unspecified; F32.9 Major depressive disorder, single episode, unspecified; K58.9 Irritable bowel syndrome, unspecified; D72.829 Elevated white blood cell count, unspecified; Z83.3 Family history of diabetes mellitus; Z82.49 Family history of ischemic heart disease and other diseases of the circulatory system; Z82.0 Family history of epilepsy and other diseases of the nervous system

== ENCOUNTER 2017-07-17 22:08 | Emergency (ER) | payer OTHER ==
[~2017-07-17] VITALS: Ht 165.1 cm; Wt 65.3 kg
[~2017-07-17 22:08] MED LIST changes: -MOMLX PO
[2017-07-17 22:18] VITALS: TEMP 37; Ht 165.1 cm; Wt 65.3 kg
[2017-07-17] MEDS ORDERED: KETOROLAC TROMETHAMINE 60 MG/2 ML VIAL IM STA (22:31)
[2017-07-17] MEDS ORDERED: HYDROCODONE/ACETAMIN 5/325MG TAB PO ONE (22:45)
[2017-07-17] MEDS ORDERED: CYCL10TA6 PO (23:41)
[2017-07-17] MEDS ORDERED: PRED50TA PO (23:41)
[2017-07-17 23:44] VITALS: BP 122/74; PULSE 75; O2SAT 99
[2017-07-17] MEDS ORDERED: NORCO 5/325MG HOME PACK PO ONE (23:45)
--- NOTE | 2017-07-18 07:00 | DIAGNOSTIC IMAGING REPORT ---
L-SPINE MIN 4 VIEWS ROUTINE CLINICAL HISTORY: 36 years-old Female presenting with low back pain. TECHNIQUE: Frontal, bilateral oblique, lateral, and coned in lateral views of the lumbar spine were obtained. COMPARISON: 03/31/2014. FINDINGS: No scoliosis. No compression deformity or subluxation. Vertebral bodies maintain normal height and alignment. Mild intervertebral disc height loss at L5-S1 is similar to prior exam. Remaining intervertebral disc heights preserved. No other evidence of degenerative change. No graphic evidence of osseous neural foraminal narrowing. No pars defect. Sacroiliac joints congruent. Nonobstructive bowel gas pattern. IMPRESSION: No radiographic evidence of acute osseous injury or significant degenerative change in the lumbar spine. Electronically signed by: Vicente Sterling M.D. 07/18/2017 6:58 AM Dictated Date/Time: 07/18/2017 6:56 AM
--- NOTE | 2017-07-18 23:40 | EMERGENCY ROOM VISIT NOTE ---
History First contact with patient: 22:25 Chief Complaint: BACK PAIN Stated Complaint: LOWER BACK PAIN,SORE History of Present Illness The patient is a 36 year old female who presents to the Emergency Room with complaints of low back pain worsening over the past 1 hour. The patient has had some ongoing low back pain for the past several months. Often her symptoms will wax and wane and improve with pbvl-lpa-eeyqept analgesics. The patient states that she was picking up her nephew tonight when she felt worsening in her back. She has not had numbness or paresthesias. Her back pain worsens with certain motion, and radiates into her left side hip and down her left side leg. The patient does not have fever or chills. No fall or trauma. She rates her discomfort an 8/10. She did not take anything prior to arrival for pain control. Review of Systems More than 10 systems were reviewed and otherwise negative with the exception of history of present illness. Past Medical/Surgical History Medical Problems: (1) Anemia (2) Anxiety (3) Colonoscopy (4) Depression (5) ESOPHAGEAL REFLUX (6) Gallstones (7) Irritable bowel syndrome with constipation (8) Leukocytosis Family History Cancer Diabetes mellitus Gallbladder disease Heart disease Hypertension Kidney disease Kidney stones Lung disease Seizures Social History Smoking Status: Never Smoker Alcohol Use: none Drug Use: none Marital Status: Housing Status: lives with family Occupation Status: employed Current/Historical Medications Scheduled Cyclobenzaprine Hcl (Flexeril), 10 MG PO TID Prednisone (Prednisone), 50 MG PO DAILY Sertraline (Zoloft), 50 MG PO DAILY Physical Exam Vital Signs Date Time Temp Pulse Resp B/P (MAP) Pulse Ox O2 Delivery O2 Flow Rate FiO2 07/17/17 23:44 75 18 122/74 99 Room Air 07/17/17 22:18 37.0 80 18 107/66 99 Room Air Physical Exam VITALS: Vitals are noted on the nurse's note and reviewed by myself. Vital signs stable. GENERAL: Well-developed, well-nourished, white female who is in moderate discomfort secondary to her stated complaint. Patient is cooperative with the examination. HEAD: Normocephalic atraumatic. NECK: Supple without nuchal rigidity. No lymphadenopathy. No thyromegaly. Cervical spine is nontender. HEART: Regular rate and rhythm without murmurs gallops or rubs. LUNGS: Clear to auscultation bilaterally without wheezes, rales or rhonchi. No retractions or accessory muscle use. ABDOMEN: Positive normal bowel sounds x 4. Soft, nontender, without masses or organomegaly. No guarding or rebound tenderness. MUSCULOSKELETAL: No muscle atrophy, erythema, or edema noted. Full range of motion in all extremities. Positive tenderness in the lower lumbar spine and left SI joint. Positive left straight leg raise. No saddle paresthesias. NEURO: Patient was alert and oriented to person place and time. CN II through XII grossly intact. No focal neurological deficits. Deep tendon reflexes 2+ throughout. SKIN: The skin was without rashes, erythema, edema, or bruising. Capillary refill less than 2 seconds. Medical Decision & Procedures ER Provider Diagnostic Interpretation: L-SPINE MIN 4 VIEWS ROUTINE CLINICAL HISTORY: 36 years-old Female presenting with low back pain. TECHNIQUE: Frontal, bilateral oblique, lateral, and coned in lateral views of the lumbar spine were obtained. COMPARISON: 03/31/2014. FINDINGS: No scoliosis. No compression deformity or subluxation. Vertebral bodies maintain normal height and alignment. Mild intervertebral disc height loss at L5-S1 is similar to prior exam. Remaining intervertebral disc heights preserved. No other evidence of degenerative change. No graphic evidence of osseous neural foraminal narrowing. No pars defect. Sacroiliac joints congruent. Nonobstructive bowel gas pattern. IMPRESSION: No radiographic evidence of acute osseous injury or significant degenerative change in the lumbar spine. Medications Administered Medications (Trade) Dose Ordered Sig/Will Route Start Time Stop Time Status Last Admin Dose Admin Acetaminophen/ Hydrocodone Bitart (Bixby 5/325 Tab) 1 tab NOW ONCE PO 07/17/17 22:45 07/17/17 22:46 DC 07/17/17 22:36 1 TAB Acetaminophen/ Hydrocodone Bitart (Bixby 5/325mg Home Pack) 1 homepack UD ONCE PO 07/17/17 23:45 07/17/17 23:46 DC 07/17/17 23:48 1 HOMEPACK ED Course Physical exam and history were performed. Nursing notes, EMR, and Medication List were personally reviewed. Patient appears to have left-sided low back pain that is acutely exacerbated for the past few hours. The patient appears quite uncomfortable on examination. She was given IM Toradol and IM Decadron as well as oral Vicodin. X-rays were performed and reviewed by myself and radiology as showing no acute fracture or dislocation. On reevaluation the patient was able to sit comfortably in a chair, which she previously was not able to do. She did report improvement of her symptoms. Overall I do not suspect an acute surgical process or cauda equina. The patient will be given a short course of pain medication, steroids, and muscle relaxers to help with her discomfort. She is to follow with her primary care physician. She was otherwise invited back to the ER with any new, worsening, or concerning symptoms. The chart was completed utilizing [employer] Speech Voice Recognition Software. Grammatical errors, random word insertions, pronoun errors, and incomplete sentences are an occasional consequence of this system due to software limitations, ambient noise, and hardware issues. Any formal questions or concerns about the content, text, or information contained within the body of this dictation should be directly addressed to the provider for clarification. . Medical Decision Differential diagnosis: Etiologies such as musculoskeletal, disc herniation, fracture, aortic disease, metastatic disease, cord compression, discitis, infection, renal colic, gastrointestinal, acute exacerbation of chronic back pain, sciatica, cauda equina, as well as others were entertained. Impression Primary Impression: Low back pain Departure Information Dispostion Home / Self-Care Condition GOOD Prescriptions Cyclobenzaprine Hcl (FLEXERIL) 10 Mg Tab 10 MG PO TID for 7 Days, #21 TAB Prov: Wil Castillo PA-C 07/17/17 Prednisone (Prednisone) 50 Mg Tab 50 MG PO DAILY for 4 Days, #4 TAB Prov: Wil Castillo PA-C 07/17/17 Forms HOME CARE DOCUMENTATION FORM, IMPORTANT VISIT INFORMATION Patient Instructions My [facility] Additional Instructions You were seen and evaluated today on an emergency basis only. This is not a substitute for, or an effort to provide, complete comprehensive medical care. It is not possible to recognize and treat all injuries or illnesses in a single emergency department visit. For this reason it is recommended that you followup with your primary care physician with any ongoing or persisting symptoms. For baseline pain relief you may alternate ibuprofen and acetaminophen every 4 hours for pain control. Take 600 mg ibuprofen (Advil) and then 4 hours later take 1000 mg acetaminophen (Tylenol). Do not take more than 3000 mg acetaminophen in a single day. Bixby (hydrocodone/acetaminophen) 5/325 mg (homepack) ONE tab every 6 hours as needed for worsening breakthrough pain. Do not drink or drive on Bixby. This medication will likely make you tired. Do not take Bixby and Tylenol at the same time as both contain acetaminophen. Bixby may cause constipation. You may wish to take an [id number] stool softener like Colace if this occurs. Take prednisone as prescribed Flexeril 1 tablet up to 3 times a day as needed for muscle spasms. No driving, working, or alcohol use with Flexeril. You are welcome to return to the emergency department anytime with new, worsening, or concerning symptoms.
== END 2017-07-17 23:53 | disposition home or self-care (01) ==
LOC: C.EDB 22:10 → C.EDA 23:53
DX: M54.5 Low back pain (principal); F32.9 Major depressive disorder, single episode, unspecified; Z87.19 Personal history of other diseases of the digestive system

== ENCOUNTER → 2017-10-12 | Outpatient (CLI) | payer OTHER ==
[2017-10-12 17:41] LABS: ALBUMIN 3.7 gm/dl (3.4-5.0); ALKALINE PHOSPHATASE 71 U/L (45-117); ALT/SGPT 13 U/L (12-78); AST/SGOT 10 U/L (15-37); BLOOD UREA NITROGEN 11 mg/dl (7-18); CARBON DIOXIDE 28 mmol/L (21-32); CREATININE 0.91 mg/dl (0.60-1.20); GLUCOSE 87 mg/dl (70-99); POTASSIUM 3.9 mmol/L (3.5-5.1); SODIUM 140 mmol/L (136-145); TOTAL PROTEIN 7.1 gm/dl (6.4-8.2)
== END | disposition home or self-care (01) ==
LOC: C.LABBFT 14:45
PROVIDERS: ATTEND Nurse Practitioner
DX: R63.4 Abnormal weight loss (principal)